=== PATIENT | male | born 1965 | race Caucasian/White ===

== ENCOUNTER → 2018-11-27 09:38 | Outpatient (CLI) | payer OTHER ==
[2015-02-03 10:19] VITALS: BMI 35.1
[~2018-11-27 09:38] MED LIST: BRILINTA90 MG PO; LOW DOSE ASPIRI81 M1 PO; PLAVIX75 MG PO; WELLBUTRIN XL150 M1 PO
--- NOTE | 2018-11-30 13:29 | ST ---
PATIENT:KEEGAN CHILD MEDICAL RECORD: [id number] SEX: M LOCATION:[facility] ORDER #: ADMISSION DATE: 11/27/18 AGE OF PATIENT: 53 REFERRING PHYSICIAN: INTERPRETING PHYSICIAN: SONYA DEMPSEY MD DATE OF SERVICE: 11/27/2018 PROCEDURE: Nuclear stress test. INDICATIONS: Angina, coronary artery disease, abnormal ECG. He was exercised on standard Lexiscan protocol with 33 mCi of sestamibi injected at peak stress, 11 mCi used previously for rest images. FINDINGS: Gated SPECT reveals preserved ejection fraction at 55% with decreased thickening and brightening throughout the inferior segments. SPECT imaging: Cardiolite was used as myocardial perfusion agent. There is a fixed perfusion defect inferiorly. This includes basal, mid, apical, inferior segments. There is no evidence of reversibility and the remaining segments are with homogeneous uptake in rest and stress. OVERALL IMPRESSION: This is an abnormal nuclear stress test only showing a previous inferior myocardial infarction. No ongoing ischemic burden. Ejection fraction preserved at 55%. Continue medical management of the coronary artery disease and cardiac risk factors. TRANSINT:[id number] Voice Confirmation ID: [id number] DOCUMENT ID: [id number] SONYA DEMPSEY MD at 1329 CC: SHANKAR BLAKELY [id number] DICTATION DATE: 11/28/18 1643 PSYCHIATRIC TECHNICIAN: 11/29/18 0758 [facility] CLI 11/27/18 [address] [id number] [place] [address]
--- NOTE | 2018-12-03 13:56 | EC ---
PATIENT:KEEGAN CHILD DATE OF SERVICE: 11/27/18 SEX: M MEDICAL RECORD: [id number] DATE OF : [birth year] LOCATION:[facility] AGE OF PATIENT: 53 ADMISSION DATE: 11/27/18 REFERRING PHYSICIAN: INTERPRETING PHYSICIAN: TIM MIDDLETON MD ECHOCARDIOGRAM REPORT ECHO CHARGES 4 ECHO COMPLETE Date: 11/27/18 CLINICAL DIAGNOSIS: ANGINA/MURMUR/ABNORMAL EKG H/O CAD ECHOCARDIOGRAPHIC MEASUREMENTS (adult normal given) AC root (d.<3.7cm) 3.7 cm LV Septum d (<1.2 cm> 1.4 cm Valve Excursion 2.2 cm LV Septum (systole) 2.0 cm Left Atria (s.<4.0cm> 3.5 cm LVPW d(<1.2cm) 0.9 cm RV (d.<2.3cm) 2.9 cm LVPW (sytole) 1.4 cm LV diastole(<5.6CM) 5.8 cm MV E-F(>70mm/sec) cm LV systole 4.1 cm LVOT Diameter 2.1 cm MV exc.(>10mm) cm Est.ejection fraction (50-75%) % DOPPLER: LVIT cm/sec A 47.0 cm/sec E 66.0 cm/sec LA cm/sec RVSP mmHg LVOT 73.0 cm/sec AOP1/2T m/s Asc. Ao 97.0 cm/sec RVOT 46.0 cm/sec RA cm/sec PA 94.0 cm/sec AV Gradient Peak 3.8 mmHg AV Mean 2.0 mmHg AV Area 2.8 cm MV Gradient Peak 3.0 mmHg MV Mean 1.2 mmHg MV Area cm COMMENTS: OP - HC Manufacturing Clerk: 1 [employer] Principal Electrical Engineer: 3 Dr. Thomas TAPE# PACS Pericardial Effusion N DATE OF SERVICE: Adequate 2D, color flow imaging, spectral Doppler, and M-mode. Borderline LVH. LV internal dimension is normal. Wall motion is normal. EF is greater than or equal to 55%. Aortic valve is tricuspid. No evidence of stenosis by Doppler interrogation. Left atrium is normal. Mitral valve shows no prolapse. Trace MR. Right-sided chambers grossly normal. Mild TR. TRANSINT:[id number] Voice Confirmation ID: [id number] DOCUMENT ID: [id number] ECHOCARDIOGRAM REPORT [id number] KEEGAN CHILD,TIM Perez MD at 1356 CC: [id number] DICTATION DATE: 11/28/181422 MEDICAL LEADER: 11/28/182225 [facility] CLI 11/27/18 [place] [id number] [place] [id number]
== END | disposition home or self-care (01) ==
LOC: D.HCCARDIO 09:38
PROVIDERS: ATTEND Internal Medicine Interventional Cardiology
DX: I25.10 Atherosclerotic heart disease of native coronary artery without angina pectoris (principal)

== ENCOUNTER 2020-04-20 06:49 | Day surgery (SDC) | payer BC ==
[~2020-04-20] VITALS: Ht 170.2 cm; Wt 103.0 kg
--- NOTE | ~2020-04-20 | HEMODYNAMI ---
PATIENT:KEEGAN CHILD MEDICAL RECORD: [id number] : 61 LOCATION:D.CAT ADMISSION DATE: 04/20/20 Generatedon:110:12 Patient name: KEEGAN CHILD Patient #: [id number] SSN: [id number] : 1965 Date of study: 04/20/2020 Page: Of Hemodynamic Procedure Report Patient Data Patient Demographics Procedure consent was obtained First Name: KEEGAN Gender: Male Last Name: DANYELL : 1965 [facility] Initial: CHAS Age: 54 year(s) Patient #: [id number] Race: SSN: [id number] Additional ID: [id number] Contact details Address: [address] [place] [address] State: [place] City: [place] Zip code: [address] Past Medical History History of disease Date Diagnosis Comments CAD Allergies: No known allergies Admission Admission Data Admission Date: 04/20/2020 Admission Time: 6:49 Arrival Date: 04/20/2020 Arrival Time: 0:00 Height (in.): 67 BSA: 2.14 (m2) Height (cm.): 170.18 BMI: 35.71 (kg/m2) Weight (lbs.): 228 Weight (kg.): 103.42 Lab Results Lab Result Date: 04/20/2020 Lab Result Time: 0:00 Biochemistry Name Units Result Min Max BUN mg/dl 22 --(----)-* 7 18 Creatinine mg/dl 1 --(--*-)-- 0.6 1.3 eGFR ml/min 82.91841 *-(----)-- 90 120 NONAFRICAN CBC Name Units Result Min Max Hematocrit % 44.5 --(*---)-- 42 54 Hemoglobin g/dl 15.1 --(-*--)-- 13.5 17.5 Procedure Procedure Types Cath Procedure Diagnostic Procedure C [facility] w/Coronaries FFR/IVUS FFR Initial Sedation Charges Moderate Sedation 40-54 minutes PCI Procedure Coronary Stent Coronary Stent Initial Hemochron ACT Test Procedure Description Procedure Date Procedure Date: 04/20/2020 Procedure Start Time: 9:04 Procedure End Time: 9:50 Procedure Staff Name Function Jeff Torrez RN Nurse Milton Keene MD Performing Physician Matilda Sullivan RT Monitor Janeth Che RT Scrub Procedure Data Cath Procedure Fluoroscopy Diagnostic fluoroscopy Total fluoroscopy Time: 7.9 time: 7.9 min min Diagnostic fluoroscopy Total fluoroscopy dose: dose: 1216 mGy 1216 mGy Contrast Material Contrast Material Type Amount (ml) Isovue 300 143 Entry Location Entry Primary Successful Side Size Upsize Upsize Entry Closure Succes sful Closure Location (Fr) 1 (Fr) 2 (Fr) Remarks Device Remarks Femoral Right 5 Fr 6 Fr Exoseal artery Short Estimated blood loss: 10 ml Diagnostic catheters Device Type Used For End Catheter Placement MULTIPACK JL 4.0 5Fr Procedure catheter MULTIPACK 3DRC 5Fr Procedure catheter MULTIPACK Pigtail 5 Fr Procedure catheter MULTIPACK JL 4.0 5Fr Procedure catheter Procedure Complications No complications Procedure Medications Medication Administration Route Dosage Oxygen etCO2 Nasal cannula 2 l/min Lidocaine 2% added to field 20 Heparin Flush Bag added to field 2 bags (1000units/500ml NS) 0.9% NaCl I.V. 100 ml/hr Versed I.V. 2 mg Fentanyl I.V. 50 mcg Heparin Bolus I.V. 5000 units Versed I.V. 1 mg Fentanyl I.V. 50 mcg Versed I.V. 1 mg Heparin Bolus I.V. 2000 units Hemodynamics Rest BSA: 2.14 (m2) HGB: 15.1 (g/dl) O2 Consumption: Estimated: 251.84 (ml/min) O2 Co nsumption indexed: Estimated:117.68 (ml/min/m) Heart Rate: 68 (bpm) Pressure Samples Time Site Value (mmHg) Purpose Heart Use Rate(bpm) 9:09 LV 102/15,26 Snapshot 82 9:09 LV 110/14,17 Snapshot 74 9:09 AO 118/48(88) Pullback 71 Gradients Valve Time Site Site 2 Mean SEP/DFP Peak To Heart Use 1 (mmHg) (sec/min) Peak Rate (mmHg) (bpm) Aortic 9:09 LV AO 9 13 71 118/48(88) Calculations Valve P-P Mean Valve Index Valve Source Name Gradient Area Flow (cm2) Aortic 9 9 Snapshots Pre Cath Intra NCS Post Cath Vital Signs Time Heart Resp SPO2 etCO2 NIBP (mmHg) Rhythm Pain Sedation Rate (ipm) (%) (mmHg) Status Level (bpm) 8:43:29 71 16 98 31.2 121/76(96) NSR 0 (11) 10(A) , No pain 8:47:45 66 15 96 17.5 113/68(91) NSR 0 (11) 10(A) , No pain 8:52:01 74 15 95 29.7 116/69(97) NSR 0 (11) 10(A) , No pain 8:56:15 67 11 94 39.6 111/71(87) NSR 0 (11) 10(A) , No pain 9:00:27 70 12 92 35.8 122/75(91) NSR 0 (11) 10(A) , No pain 9:04:45 68 12 94 35.8 114/65(91) NSR 0 (11) 10(A) , No pain 9:08:59 69 11 94 38.8 117/71(85) NSR 0 (11) 9(A) , No pain 9:13:13 68 12 93 40.3 119/65(91) NSR 0 (11) 9(A) , No pain 9:17:29 68 11 94 36.5 108/64(91) NSR 0 (11) 9(A) , No pain 9:21:43 70 12 95 36.6 112/64(89) NSR 0 (11) 9(A) , No pain 9:25:57 70 13 97 32 109/69(92) NSR 0 (11) 9(A) , No pain 9:30:09 72 12 99 38.8 124/70(94) NSR 0 (11) 9(A) , No pain 9:34:29 70 13 97 37.3 124/63(105) NSR 0 (11) 9(A) , No pain 9:38:45 69 13 99 35 119/67(87) NSR 0 (11) 9(A) , No pain 9:42:59 69 13 98 35 116/72(87) NSR 0 (11) 9(A) , No pain 9:47:11 73 13 99 31.2 120/78(104) NSR 0 (11) 10(A) , No pain Medications Time Medication Route Dose Verified Delivered Reason Notes Effectiveness by by 8:49:10 Oxygen etCO2 2 Milton Buffie used for Nasal l/min St Chas Torrez RN procedure cannula 8:49:18 Lidocaine 2% added 20ml Milton Milton for local to vial [facility] anesthetic field MD KINSEY 8:49:23 Heparin Flush added 2 Milton Milton used for Bag to bags [facility] procedure (1000units/500ml field MD KINSEY NS) 8:49:33 0.9% NaCl I.V. 100 Milton Buffie Per physician ml/hr St Chas Torrez RN, MD 9:01:43 Versed I.V. 2 mg Milton Buffie for sedation St Chas Torrez RN, MD 9:01:49 Fentanyl I.V. 50 Milton Buffie for sedation mcg St Chas Torrez RN, MD 9:06:36 Versed I.V. 1 mg Milton Buffie for sedation St Chas Torrez RN, MD 9:06:40 Fentanyl I.V. 50 Milton Buffie for sedation mcg St Chas Torrez RN, MD 9:13:41 Heparin Bolus I.V. 5000 Milton Buffie for verifi ed units St Chas Torrez RN anticoagulation with dr MD casas 9:26:35 Versed I.V. 1 mg Milton Buffie for sedation St Chas Torrez RN, MD 9:42:52 Heparin Bolus I.V. 2000 Milton Buffie for verifi ed units St Chas Torrez RN anticoagulation with dr MD casas Procedure Log Time Note 7:52:38 Informed consent obtained and on chart 7:53:08 Procedure Status Elective Heart Cath (OP). 7:53:10 Time tracking: Regular hours (M-F 7:00 - 5:00) 7:53:13 Plan of Care:Hemodynamics will remain stable., Cardiac rhythm will remain stable., Comfort level will be maintained., Respiratory function will remain adequate., Patient/ family verbilizes understanding of procedure., Procedure tolerated without complication., Recovers from procedure without complications.. 7:54:48 H&P Date Dictated: 04/16/2020 Within 30 days and on chart., H&P Addendum completed by physician on day of procedure. (MUST COMPLETE FOR ALL OUTPATIENTS). 7:54:53 Patient allergic to No known allergies 8:25:18 Jeff Torrez RN sent for patient. Start room use. 8:35:31 Patient received from Pre/Post Procedure Room to CCL 1 Alert and oriented. Tansferred to table in Supine position. 8:35:32 Correct patient and procedure confirmed by team. 8:35:32 Warm blankets applied, and mnua hugger turned on for patient comfort. 8:35:33 ECG and BP/O2 sat monitors applied to patient. 8:42:17 Vital chart was started 8:42:18 Pre-procedure instructions explained to patient. 8:42:19 Pre-op teaching completed and patient verbalized understanding. 8:42:20 Family unavailable. 8:42:23 Patient NPO since Midnight. 8:42:24 Is the patient allergic to Iodine/contrast media? No. 8:42:25 Is patient on blood thinner?Yes 8:42:27 ACC The patient was administered the following blood thiners within the last 24 hours: ACCPlavix 8:43:13 Patient diabetic? No. 8:43:15 Previous problem with sedation/anesthesia? No ? 8:43:17 Snore? Yes 8:43:18 Sleep apnea? No 8:43:19 Deviated septum? No 8:43:20 Sticks out tongue? Yes 8:43:20 Opens mouth fully? Yes 8:43:22 Airway obstruction? No ? 8:43:24 Dentures? No ? 8:43:28 Pre procedure: right dorsailis pedis pulse 1+ Palpable, but thready & weak; easily obliterated 8:43:31 Patient pain scale 0/10 PAIN OFF AND ON . 8:43:49 IV patent on arrival in left hand with 0.9% NaCl at [facility]. 8:45:21 Lab Result : Hemoglobin 15.1 g/dl 8:45:21 Lab Result : Hematocrit 44.5 % 8:45:21 Lab Result : eGFR NONAFRICAN 82.42787 ml/min 8:45:21 Lab Result : BUN 22 mg/dl 8:45:21 Lab Result : Creatinine 1 mg/dl 8:45:23 Lab results completed and on chart. 8:45:28 Right groin area was prepped with chlora-prep and draped in sterile fashion 8:45:31 - 8:45:31 Alarms reviewed by Abisai Alonzo 8:45:32 Sharps counted by scrub and verified by Darell 8:48:49 Patient Weight : 228 lbs 8:48:57 Patient Height : 67 inches 8:49:00 Arrival Date: 04/20/2020 12:00:00 AM 8:49:10 Oxygen 2 l/min etCO2 Nasal cannula was administered by Jeff Torrez RN; used for procedure; Verbal order read back and verified. 8:49:18 Lidocaine 2% 20ml vial added to field was administered by Milton Keene MD; for local anesthetic; Verbal order read back and verified. 8:49:23 Heparin Flush Bag (1000units/500ml NS) 2 bags added to field was administered by Milton Keene MD; used for procedure; Verbal order read back and verified. 8:49:33 0.9% NaCl 100 ml/hr I.V. was administered by Jeff Torrez RN; Per physician; Verbal order read back and verified. 9:01:20 Final Timeout: patient, procedure, and site verified with staff and physician. All members of the team are in agreement. 9:01:20 --------ALL STOP TIME OUT------ 9:01:22 Right groin site verified by team. 9:01:24 Fire Safety Assessment: A--An alcohol-based skin anteseptic being used preoperatively., C--Open oxygen or nitrous oxide is being used., D--An ESU, laser, or fiber-optic light is being used. 9:01:27 Physical assessment completed. ASA score P 2 - A patient with mild systemic disease as per Milton Keene MD. 9:01:30 2) 60-89 Mildly reduced kidney function, and other findings (as for stage 1) point to kidney disease. 9:01:33 Maximum allowable contrast dose (3.7 X eGFR X 0.75)228 ml. 9:01:36 Sedation plan: IV Moderate Sedation Medication:Versed, Fentanyl 9:01:43 Versed 2 mg I.V. was administered by Jeff Torrez RN; for sedation; Verbal order read back and verified. 9:01:49 Fentanyl 50 mcg I.V. was administered by Jeff Torrez RN; for sedation; Verbal order read back and verified. 9:04:00 Zero performed for pressure channel P1 9:04:03 Full Disclosure recording started 9:04:03 Procedure started. 9:04:07 Local anesthetic to right femoral artery with Lidocaine 2% by Milton Rodríguez MD.INITIAL ACCESS ONLY 9:04:52 Baseline sample Acquired. 9:04:55 Rhythm: sinus rhythm 9:05:00 Use device set Femoral Dx 9:05:01 Bag Decanter (2002S) opened to sterile field. 9:05:02 ACIST Hand Control (88062) opened to sterile field. 9:05:02 ACIST Syringe (70006) opened to sterile field. 9:05:03 ACIST Manifold (60791) opened to sterile field. 9:05:04 Tegaderm 4 x 4 (1626W) opened to sterile field. 9:05:05 Medline Cath Pack ([id number]) opened to sterile field. 9:05:06 DIAGNOSTIC Multipack 5Fr catheter set (SU9747) opened to sterile field. 9:05:07 EMERALD Guide Wire (499-978) opened to sterile field. 9:05:07 SHEATH 5FR [place] (RJX901) opened to sterile field. 9:05:16 A 5 Fr sheath was inserted into the Right Femoral artery 9:05:24 A MULTIPACK JL 4.0 5Fr catheter was advanced over the wire and used for Procedure. 9:06:36 Versed 1 mg I.V. was administered by Jeff Torrez RN; for sedation; Verbal order read back and verified. 9:06:40 Fentanyl 50 mcg I.V. was administered by Jeff Torrez RN; for sedation; Verbal order read back and verified. 9:07:06 LCA angiography performed. 9:07:08 Catheter removed. 9:07:13 A MULTIPACK 3DRC 5Fr catheter was advanced over the wire and used for Procedure. 9:08:12 RCA angiography performed. 9:08:16 Catheter removed. 9:08:32 A MULTIPACK Pigtail 5 Fr catheter was advanced over the wire and used for Procedure. 9:09:08 LV gram done using BAUER 9:09:11 Injector settings: Ml/sec: 10, Volume: 20, 9:09:46 LV hemodynamics recorded. 9:09:50 EF : 55 % 9:09:52 Catheter removed. 9:09:54 Proceeding to intervention. 9:12:38 GUIDE 6FR HS II SH catheter ([id number]) opened to sterile field. 9:12:39 SHEATH 6FR [place] (UBP892) opened to sterile field. 9:12:44 Sheath upsized to a 6 Fr Short. 9:12:51 BMW 300cm Straight High View 2 wire ([id number]) opened to sterile field. 9:12:55 INFLATOR Merit BasixCompak (KC4271) opened to sterile field. 9:13:07 Pre PCI Site: [place] RCA has 90% stenosis. 9:13:16 6 Fr HS 2 SH guide catheter was inserted over the wire 9:13:41 Heparin Bolus 5000 units I.V. was administered by Jeff Torrez RN; for anticoagulation; verified with dr casas Verbal order read back and verified. 9:15:07 BMW 300 wire advanced. 9:15:08 Wire advanced across lesion. 9:16:27 Inflate balloon Inflation number: 1 A EUPHORA 3.0 x 15 Balloon ([id number]) was prepped and advanced across the Mid RCA , then inflated to 12 KAILYN for 0:00 (min:sec) . 9:17:00 Inflation number: 2 The EUPHORA 3.0 x 15 Balloon ([id number]) was reinflated across the Mid RCA , to 12 KAILYN for 0:15 (min:sec) . 9:17:38 Inflation number: 3 The EUPHORA 3.0 x 15 Balloon ([id number]) was reinflated across the Mid RCA , to 12 KAILYN for 0:15 (min:sec) . 9:18:19 Inflation number: 2 The EUPHORA 3.0 x 15 Balloon ([id number]) was reinflated across the Prox RCA , to 12 KAILYN for 0:15 (min:sec) . 9:18:57 Inflation number: 1 The EUPHORA 3.0 x 15 Balloon ([id number]) was reinflated across the Prox RCA , to 12 KAILYN for 0:15 (min:sec) . 9:19:46 Inflation number: 4 The EUPHORA 3.0 x 15 Balloon ([id number]) was reinflated across the Mid RCA , to 12 KAILYN for 0:15 (min:sec) . 9:21:35 Inflation number: 3 The EUPHORA 3.0 x 15 Balloon ([id number]) was reinflated across the Prox RCA , to 14 KAILYN for 0:15 (min:sec) . 9:22:35 Balloon removed over the wire. 9:25:08 Place stent Inflation Number: 5 A AISHA RX 3.0 x 22 stent ([id number]) was prepped and advanced across the Mid RCA . The stent was deployed at 14 KAILYN for 0:15 (min:sec) . 9:25:45 Inflation number: 4 The stent balloon was then re-inflated across the Prox RCA to 16 KAILYN for 0:00 (min:sec) . 9:26:06 Inflation number: 6 The stent balloon was then re-inflated across the Mid RCA to 16 KAILYN for 0:00 (min:sec) . 9:26:23 Stent catheter was removed intact over wire. 9:26:35 Versed 1 mg I.V. was administered by Jeff Torrez RN; for sedation; Verbal order read back and verified. 9:26:39 Wire removed. 9:26:40 Guide catheter removed. 9:27:01 Guy PressureWire X ([id number]) opened to sterile field. 9:27:25 A MULTIPACK JL 4.0 5Fr catheter was advanced over the wire and used for Procedure. 9:31:29 Pressure wire advanced. 9:42:52 Heparin Bolus 2000 units I.V. was administered by Jeff Torrez RN; for anticoagulation; verified with dr casas Verbal order read back and verified. 9:45:08 Wire advanced across lesion. 9:46:12 Circ lesion measured at 1.00 with IFR 9:46:28 Wire removed. 9:46:37 Cath removed 9:46:45 EXOSEAL 6Fr (EX600) opened to sterile field. 9:47:54 Sheath removed intact; hemostasis achieved with Exoseal to the Right Femoral artery. 9:48:02 Procedure ended.(Physican Out) 9:48:12 Fluoroscopy time 07.90 minutes. 9:48:16 Fluoroscopy dose: 1216 mGy 9:48:16 Flurop Dose total: 1216 9:48:21 Dose Area Product 03296 mGy/cm. 9:48:31 Contrast amount:Isovue 300 143ml. 9:48:33 Sharps counted by scrub and verified by R.N. 9:48:33 Maximum allowable dose exceeded? No. 9:48:36 Post-op/insertion site Right Femoral artery dressed using a 4 x 4 and Tegaderm. 9:48:38 Post-procedure physical assessment completed. ASA score P 2 - A patient with mild systemic disease as per Milton Keene MD. 9:48:41 Post procedure rhythm: sinus rhythm 9:48:42 Estimated blood loss: 10 ml 9:48:44 Patient needs reinforcement of post procedure teaching. 9:48:44 Post procedure instruction explained to patient.Patient verbalizes understanding. 9:49:22 Procedure type changed to Cath procedure, Diagnostic procedure, LHC, C w/Coronaries, FFR/IVUS, FFR Initial, Sedation Charges, Moderate Sedation 40-54 minutes, PCI procedure, Coronary Stent, Coronary Stent Initial, Hemochron ACT Test 9:50:14 Procedure and supply charges have been captured, reviewed, submitted an d are correct. 9:50:18 Procedure Complication : No complications 9:50:20 Vital chart was stopped 9:50:21 [facility] Findings: MVD- PCI performed (see procedure note) 9:50:23 See physician's report for complete and final results. 9:50:23 Operative report dictated upon procedure completion. 9:50:25 Report given to Pre/Post Procedure Room. 9:50:27 Patient transfered to Pre/Post Procedure Room with Bed. 9:50:29 Full Disclosure recording stopped 9:50:29 Procedure ended. 9:52:07 End room use (Document Last) 9:52:59 End room use (Document Last) 9:53:33 End room use (Document Last) 10:11:43 ACT drawn and resulted at 281 seconds. (normal therapeutic range 180-24 0 seconds). Intervention Summary Intervention Notes Time ActionType Lesion and Equipment Used Action# Pressure Duration Attributes 9:16:27 Inflate Mid RCA EUPHORA 3.0 x 1 12 00:00 balloon 15 Balloon ([id number]) 9:17:00 Reinflate Mid RCA EUPHORA 3.0 x 2 12 00:15 balloon 15 Balloon ([id number]) 9:17:38 Reinflate Mid RCA EUPHORA 3.0 x 3 12 00:15 balloon 15 Balloon ([id number]) 9:18:19 Reinflate Prox RCA EUPHORA 3.0 x 2 12 00:15 balloon 15 Balloon ([id number]) 9:18:57 Reinflate Prox RCA EUPHORA 3.0 x 1 12 00:15 balloon 15 Balloon ([id number]) 9:19:46 Reinflate Mid RCA EUPHORA 3.0 x 4 12 00:15 balloon 15 Balloon ([id number]) 9:21:35 Reinflate Prox RCA EUPHORA 3.0 x 3 14 00:15 balloon 15 Balloon ([id number]) 9:25:08 Place stent Mid RCA AISHA RX 3.0 x 5 14 00:15 22 stent ([id number]) 9:25:45 Reinflate Prox RCA AISHA RX 3.0 x 4 16 00:00 stent 22 stent balloon ([id number]) 9:26:06 Reinflate Mid RCA AISHA RX 3.0 x 6 16 00:00 stent 22 stent balloon ([id number]) Device Usage Item Name Manufacture Quantity Catalog Hospital Part Current Minimal Lot# / Number Charge Number Stock Stock Serial# Code Bag Elder Microtek 1 [id number] 34320 [id number] 5 () Medical Inc. ACIST Syringe Acist 1 71093 851025 991729 291701 20 (59918) Medical Systems Inc ACIST Hand Acist 1 52141 886742 272624 603399 5 Control Medical (56105) Systems Inc ACIST Manifold Acist 1 36651 411364 793308 587712 5 (35504) Medical Systems Inc Tegaderm 4 x 4 3M 1 1626W 444035 184116 324646 5 (1626W) Medline Cath Medline 1 [id number] 879232 70763 457690 5 Pack ([id number]) DIAGNOSTIC Cardinal 1 [id number] 996952 69864 103823 30 Multipack 5Fr Health catheter set (QJ7939) SHEATH 5FR Terumo 1 JXF480 691985 618392 594633 5 [place] (VJB886) EMERALD Guide Cardinal 1 502-455 727407 574808 747671 5 Wire (502-455) Health MULTIPACK JL Cardinal 1 791109 5 4.0 5Fr Health catheter MULTIPACK 3DRC Cardinal 1 846457 5 5Fr catheter Health MULTIPACK Cardinal 1 622746 5 Pigtail 5 Fr Health catheter GUIDE 6FR HS Medtronic 1 [id number] 678171 21202 474826 1 II SH catheter ([id number]) SHEATH 6FR Terumo 1 AUM938 722146 965440 792560 40 [place] (IHO403) BMW 300cm Guy 1 [id number] 498837 913663 519951 5 Straight Vascular High View 2 wire ([id number]) INFLATOR Merit Merit 1 AY0464 353089 258962 085657 15 [employer] Medical ([id number]) EUPHORA 3.0 x Medtronic 1 [id number] 444012 391146 381819 5 [id number] 15 Balloon ([id number]) AISHA RX 3.0 x Medtronic 1 [id number] 732836 9224798 640357 5 [id number] 22 stent ([id number]) Guy Guy 1 [id number] 586424 [id number] 94740 5 PressureWire X Vascular ([id number]) EXOSEAL 6Fr Cardinal 1 EX600 651251 092975 496199 10 (EX600) Health Signature Audit [place] Stage Time Signature Unsigned Intra-Procedure 04/20/2020 Janeth Che 9:52:59 AM RT(R) Intra-Procedure 04/20/2020 Jeff Torrez RN 9:53:33 AM Intra-Procedure 04/20/2020 Milton Keene MD 9:54:08 AM Chas KINSEY 04/20/2020 10:11:33 AM Intra-Procedure 04/20/2020 Milton Crow 10:12:42 AM Chas KINSEY [facility] [address] [place] [address]
[2020-04-20] MEDS ORDERED: NORVASC10 MG PO (07:14)
[2020-04-20] MEDS ORDERED: COREG 3.1253.125 MG PO (07:15)
[2020-04-20 07:38] VITALS: BP 138/76; Ht 170.2 cm; Wt 103.0 kg
[2020-04-20 07:56] LABS: BASOPHILS 0.2 % (0-2); EOSINOPHILS 1.7 % (0-7); HEMATOCRIT 44.5 % (42.0-54.0); HEMOGLOBIN 15.1 g/dL (13.5-17.5); IMMATURE GRANULOCYTES 0.1 % (0-5); LYMPHOCYTE ABS# 1.87 10x3/uL (1.32-3.57); LYMPHOCYTES 20.3 % (15-50); MCH 30.6 pg (26.0-34.0); MCHC 33.9 g/dL (31.0-37.0); MCV 90.3 fL (80.0-100.0); MONOCYTES 8.8 % (2-11); NEUTROPHIL ABS# 6.32 10x3/uL (1.78-5.38); NEUTROPHILS 68.9 % (40-80); PLATELET COUNT 206 10x3/uL (130-400); RBC 4.93 10x6/uL (4.20-6.10); RDW 13.1 % (11.5-14.5); WBC 9.2 10x3/uL (4.8-10.8)
[2020-04-20 08:37] LABS: ALT (SGPT) 28 U/L (10-68); CALC OSMOLALITY 282 mosm/kg (275-300); CALCIUM 8.5 mg/dL (8.5-10.1); CARBON DIOXIDE 24.7 mmol/L (21.0-32.0); CHLORIDE - SERUM 105 mmol/L (98-107); CHOL - HDL RATIO 2.9 ratio (2.3-4.9); CHOLESTEROL, TOTAL 137 mg/dL (0-200); GLUCOSE 115 mg/dL (74-106); HDL CHOLESTEROL 47 mg/dL (32-96); LDL CHOLESTEROL 73 mg/dL (0-100); LDL-HDL RATIO 1.6 ratio (1.5-3.5); POTASSIUM - SERUM 4.1 mmol/L (3.5-5.1); SODIUM 140 mmol/L (136-145); TRIGLYCERIDE 85 mg/dL (30-200); UREA NITROGEN 22 mg/dL (7-18); eGFR NON AFRICAN AMERICAN 82 mL/min (90-120)
--- NOTE | 2020-04-20 10:04 | NUR ---
PT ARRIVED BY STRETCHER. PLACED ON MONITORS. ASSESSMENT COMPLETED. VSS AT THIS TIME. CALL LIGHT WITHIN REACH.
[2020-04-20] MEDS ORDERED: PRAVACHOL20 MG PO (10:14)
--- NOTE | 2020-04-20 10:15 | NUR ---
PRAVASTATIN RX CALLED INTO [facility] PER PT REQUEST. SPOKE WITH PHARMACIST CHAS.
--- NOTE | 2020-04-20 10:20 | NUR ---
RIGHT GROIN DRESSING C/D/I. NO S/S OF HEMATOMA NOTED. CALL LIGHT WITHIN REACH. VSS. PT RESTING COMFORTABLY. AT THIS TIME.
--- NOTE | 2020-04-20 10:40 | NUR ---
DR. MIDDLETON AT BEDSIDE AND SPEAKING WITH PT REGARDING RESULTS AND PLAN OF CARE.
--- NOTE | 2020-04-20 10:50 | NUR ---
RIGHT GROIN DRESSING C/D/I. NO S/S OF HEMATOMA NOTED. CALL LIGHT WITHIN REACH. VSS AT THIS TIME. PT RESTING COMFORTABLY. DENIES NAUSEA/PAIN.
--- NOTE | 2020-04-20 11:20 | NUR ---
RIGHT GROIN DRESSING C/D/I. NO S/S OF HEMATOMA NOTED. CALL LIGHT WITHIN REACH. VSS AT THIS TIME. NO NEEDS. DENIES NAUSEA/PAIN.
--- NOTE | 2020-04-20 12:00 | NUR ---
PT RESTING COMFORTABLY. VSS AT THIS TIME. CALL LIGHT WITHIN REACH. RIGHT GROIN DRESSING C/D/I. NO S/S OF HEMATOMA NOTED. DENIES NAUSEA/PAIN.
--- NOTE | 2020-04-20 12:30 | NUR ---
RIGHT GROIN DRESSING C/D/I. NO S/S OF HEMATOMA NOTED. HEAD OF BED INC TO 30 DEGREES. TOLERATED WELL. SET UP WITH SANDWICH TRAY AND DRINK. DENIES NAUSEA/PAIN. STATES "I FEEL GOOD". CALL LIGHT WITHIN REACH. NO OTHER NEEDS AT THIS TIME.
--- NOTE | 2020-04-20 13:04 | NUR ---
RIGHT GROIN DRESSING C/D/I. NO S/S OF HEMATOMA NOTED. PIV D/C'D WITH CATH TIP INTACT. TOLERATED WELL. PT INSTRUCTED TO GET UP AND DRESSED AT THIS TIME. NO ASSISTANCE NEEDED. CALL LIGHT WITHIN REACH.
--- NOTE | 2020-04-20 13:10 | NUR ---
PT AMBULATED TO RESTROOM. VOIDED WITHOUT DIFFICULTY. STEADY GAIT NOTED. DISCUSSED DISCHARGE INSTRUCTIONS WITH PT. HE VOICED UNDERSTANDING.
--- NOTE | 2020-04-20 13:30 | NUR ---
RIGHT GROIN DRESSING C/D/I. NO S/S OF HEMATOMA NOTED. PT TAKEN OUT TO VEHICLE BY WHEELCHAIR. NO S/S OF DISTRESS NOTED. ALL BELONGINGS AND PAPERWORK IN HAND.
--- NOTE | 2020-04-20 15:31 | OP ---
PATIENT NAME: KEEGAN CHILD MEDICAL RECORD: [id number] :61 LOCATION:[facility] ADMISSION DATE: SURGEON: TIM MIDDLETON MD DATE OF OPERATION: 04/20/2020 PROCEDURE: Left heart catheterization, selective coronary angiography, IFR to the OM plus PTCA stenting to the right coronary artery, right femoral artery approach. CATHETERS: A 5-Serbian sheath, 5/4 left and right Shabana, 5/4 pig. The procedure was well tolerated. The patient returned to [facility]. Sheath removed. ExoSeal device placed. FINDINGS: Left ventriculography in 30-degree BAUER view: Normal wall motion and normal systolic function. CORONARY ANATOMY: Left main: Left main is free of disease. LAD: LAD is free of disease in diagonal system. Circumflex: Terminal circumflex is an area free of stenosis, totally occluded, fills well via left to left collaterals, has a large OM, has a questionable stenosis in mid portion; however, this is not significant via normal IFR wire results. Right coronary artery: Has severe diffuse end-stent restenosis with a iliamna stenosis distal to the previously placed stent. PLAN: Intervention momentarily. DESCRIPTION OF PROCEDURE: A 5-Serbian sheath was exchanged for a 6-Serbian sheath. A hockey stick guiding catheter provided excellent guide catheter support. Pre-deployment balloon used was a 3.0 x 15 mm [place] up and down the area of restenosis as well as predeployment for the iliamna stenosis of 80%. Next, stent deployed was a 3.0 x 22 mm Tavo drug-eluting stent up to 14 atmospheres. Final angiography shows excellent resolution of a 90% restenosis as well as 80% iliamna stenosis. No significant residual. JOSEFINA flow was 3 throughout the procedure. Heparin was used during the case. The patient was previously on Plavix. Sheath closed with ExoSeal device. TRANSINT:[id number] Voice Confirmation ID: [id number] DOCUMENT ID: [id number] TIM MIDDLETON MD at 1531 CC: [id number] DICTATION DATE: 04/20/20 0954 MAGNETIC TESTING TECHNICIAN: 04/20/20 1057 [facility] 04/20/20 [place] [address]
== END 2020-04-20 13:30 | disposition home or self-care (01) ==
LOC: D.CATH 06:49
PROVIDERS: ATTEND Internal Medicine Interventional Cardiology
DX: I25.119 Atherosclerotic heart disease of native coronary artery with unspecified angina pectoris (principal); R07.9 Chest pain, unspecified